=== PATIENT | female | born 1930 | race Caucasian/White ===

== ENCOUNTER → 2016-11-16 | Outpatient (CLI) | payer OTHER ==
[~2016-11-16] MED LIST: ASCA500 PO; ASCAUNK; ASPCH81; ATEN50TA8 PO; CHOLTAB3 PO; HYDC25 PO; [UNRECOGNIZED DRUG - CODE]
== END | disposition home or self-care (01) ==
LOC: C.PATHSPEC 17:21
PROVIDERS: ATTEND Plastic Surgery
DX: C44.519 Basal cell carcinoma of skin of other part of trunk (principal); L91.8 Other hypertrophic disorders of the skin

== ENCOUNTER → 2017-03-09 | Outpatient (CLI) | payer OTHER ==
[~2017-03-09] MED LIST changes: -ASCAUNK; -[UNRECOGNIZED DRUG - CODE]
[2017-03-09 09:54] VITALS: BP 142/79; PULSE 83; TEMP 36.6; O2SAT 96
--- NOTE | 2017-03-09 11:01 | Radiation Oncology Follow-Up ---
Radiation Oncology Follow-Up Date of Visit Mar 09, 2017. Reason For Visit One-month follow-up Radiation Completion Date finished 02-07-2017 Diagnosis (1) Lymphoma malignant, large cell Status: Acute Onset Date: ~ 2004 Location: posterior scalp Stage: IV Permanent Comment: Left scalp lesion biopsied 2004 B-cell lymphoma Positive bone marrow Stage IV 02/14/2005 Status post R CHOP chemotherapy Complete response Development of a left groin mass PET positive Status post completion of radiation therapy to the left groin 08/09/2007 received 4500 cGy Steadily enlarging left scalp mass Biopsy 08/11/2008 B-cell lymphoma Prednisone therapy with good response Scalp lesion has recurred and is symptomatic Status post completion of radiation therapy 02/07/2017. She received 5040 cGy Last Edited By: Edith Gomes on Mar 09, 2017 10:55 History of Present Illness Ms. 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 She was previously treated with our CHOP chemotherapy and did have radiation therapy completed in 2007: She received 4500 cGy to the left groin and completed treatment on 08/09/2007. In 2008, she was diagnosed with a scalp recurrence that was confirmed to be diffuse large B- cell lymphoma that was treated with prednisone therapy and she tolerated treatment well. She has been followed by Dr. Pack from medical oncology who has treated her with several regimens including Leukeran and prednisone with mixed response. She continues to have residual disease in the right scalp and we have been asked to evaluate her for radiation therapy. She completed radiation therapy 02/07/2017. She received 5040 cGy Interim History She's been doing well over this past month. She denies any skin irritation. There was no dryness or peeling of the skin. She denies any pain or itching. She has a residual area of alopecia. She easily covers this by wearing her hair and a poiney tail. She has had discomfort in the right deltoid area. She stated that lying in the position on the treatment table caused discomfort in the upper arm. She occasionally takes Tylenol or Aleve. The pain is rated at 2 -3. This is especially noted when the arm is extended over her head. Allergies Coded Allergies: Adhesives (Verified Allergy, Unknown, ADHESIVES TAPES, 03/15/10) Home Medications Scheduled Ascorbic Acid (Vitamin C *), 500 MG PO DAILY Aspirin (Aspirin Tab-Chewable *), DAILY Atenolol (Tenormin), 50 MG PO DAILY Ergocalciferol (Vitamin D), 400 INTER.UNIT PO DAILY Hydrochlorothiazide (Hctz *), 25 MG PO DAILY Review of Systems Gastrointestinal: Symptoms: WNL Oral: Symptoms: No Problems Respiratory: Symptoms: SOB With Exertion Urinary: Symptoms: WNL Skin: Symptoms: No Problems Physical Exam Vital Signs Date Time Temp Pulse Resp B/P (MAP) Pulse Ox O2 Delivery O2 Flow Rate FiO2 03/09/17 09:54 36.6 83 16 142/79 96 Fatigue: None General Appearance: no apparent distress, + pertinent finding (there is a 4 cm area of mild pink discoloration on the posterior scalp. There is no palpable or visible lesion. She has a 7 cm area of alopecia. There is no wet or dry desquamation. There is no edema of the skin.) Eyes: normal inspection, EOMI ENT: normal ENT inspection, hearing grossly normal Neck: no adenopathy Extremities: + pertinent finding (good range of motion of the elbow and shoulder on the right) Skin: warm/dry Pain Management Pain Duration: gets worse at times Side: Right Pain Location: arm and shoulder Patient Preferred Pain Scale: 0 - 10 Pain Description: Aching Pain Management Plan As reviewed above Assessment & Plan Plan: I've asked her to take Aleve 1 pill twice a day with food for the next week. This will help to relieve any inflammation or irritation of the shoulder. She is also seen and examined by Dr. Hercules. She'll continue regular follow-up with medical oncology and her primary care physician. We asked her to return to our office in 6 months. She may call if she has any questions or concerns in the interim. Assessment & Plan (Attending) ADDENDUM: I agree with note created by Edith Gomes PA-C. I reviewed the patient's chart and information with her. I have examined and evaluated the patient. I reviewed relevant clinical information and answered the patient's and /or family's questions. [employer] Total Time In Follow-Up I spent 20 minutes speaking to the patient performing examination. I spent 15 minutes reviewing her information in complaining this note. Total Time (Attending) In Follow-Up I spent 15 minutes examining and counseling the patient. [employer] Copy To Darrell Floyd III, M.D.; Tony Pack M.D.
== END | disposition home or self-care (01) ==
LOC: C.ONC 09:45
PROVIDERS: ATTEND Physician Assistant Medical
DX: Z08 Encounter for follow-up examination after completed treatment for malignant neoplasm (principal); Z92.3 Personal history of irradiation; Z85.72 Personal history of non-Hodgkin lymphomas